=== PATIENT | female | born 1985 | race Caucasian/White ===

== ENCOUNTER 2018-05-27 19:27 | Emergency (ER) | END 2018-05-27 23:31 | disposition home or self-care (01) ==

== ENCOUNTER 2018-06-04 16:41 | Observation (INO) | END 2018-06-04 18:14 | disposition home or self-care (01) ==

== ENCOUNTER 2019-01-05 08:04 | Emergency (ER) | payer MEDICAID ==
[~2019-01-05] VITALS: Wt 68.2 kg
[~2019-01-05 08:04] MED LIST: PREN-39 PO
[2019-01-05] MEDS ORDERED: ACET500C5 PO (12:08)
[2019-01-05] MEDS ORDERED: CEPH-443 PO (12:08)
[2019-01-05 12:20] VITALS: BP 128/70; PULSE 73; RESP 18
--- NOTE | 2019-01-05 14:12 | ERD ---
ER Documentation Chief Complaint Chief Complaint vag bleed, 7 wks preg HPI 33-year-old female patient with no significant past medical history is a presents to the ED for vaginal bleeding, is currently 7 weeks . Patient is up-to-date with her vaccinations. Denies any chest pain, shortness of breath, nausea, vomiting, diarrhea, neck stiffness. ROS All systems reviewed and are negative except as per history of present illness. Medications Home Meds Active Scripts Acetaminophen* (Tylophen*) 500 Mg Capsule, 1 CAP PO Q6H PRN for PAIN AND OR ELEVATED TEMP, #20 CAP Prov:ALON WEIR PA-C 01/05/19 Cephalexin* (Keflex*) 500 Mg Capsule, 500 MG PO QID for 7 Days, CAP Prov:ALON WEIR PA-C 01/05/19 Reported Medications Vits W-Ca,Fe,Fa(<1MG) ( Vitamins) 1 Tab Tablet, 1 TAB PO DAILY 06/28/13 Allergies Allergies: Coded Allergies: No Known Drug Allergies (Verified Allergy, Unknown, 06/04/18) PMhx/Soc History of Surgery: Yes (C SEC X'S 1 ) Anesthesia Reaction: No Hx Alcohol Use: No Hx Substance Use: No Hx Tobacco Use: No Smoking Status: Never smoker Physical Exam Vitals Vital Signs Date Temp Pulse Resp B/P (MAP) Pulse Ox O2 O2 Flow FiO2 Time Delivery Rate 01/05/19 98.7 73 18 128/70 100 Room Air 12:20 (89) 01/05/19 98.7 86 20 123/67 100 08:08 (85) Physical Exam Const: [id number]-[id number], well-nourished. In no acute distress. Head: Atraumatic, normocephalic Eyes: Normal Conjunctiva without injection. No purulent discharge. ENT: Normal external ear, nose. Moist oropharynx without tonsillar exudates. Non-erythematous pharynx. Uvula midline. No drooling. No trismus. Neck: No cervical midline tenderness. Full range of motion. No meningismus. No cervical lymphadenopathy. No JVD. Resp: Clear to auscultation bilaterally. No wheezing, rhonchi, rales, or crackles. No accessory muscle use. No retractions. Cardio: Regular rate and rhythm. No murmurs, rubs or gallops. Abd: Soft, nontender, non distended. Normal bowel sounds. No palpable masses. No rebound tenderness. No guarding. Negative McBurney's point. Negative psoas sign. Negative obturator sign. Skin: No petechiae or rashes Back: No midline tenderness. No CVA tenderness. Ext: No cyanosis, or edema. Neur: Awake and alert. Normal gait. Normal coordination. Psych: Normal Mood and Affect Result Diagram: 01/05/19 0824 Results 24 hrs Laboratory Tests Test 01/05/19 08:24 White Blood Count 5.8 10^3/ul Red Blood Count 4.19 10^6/ul Hemoglobin 12.1 g/dl Hematocrit 36.6 % Mean Corpuscular Volume 87.4 fl Mean Corpuscular Hemoglobin 28.9 pg Mean Corpuscular Hemoglobin Concent 33.1 g/dl Red Cell Distribution Width 17.0 % Platelet Count 231 10^3/UL Mean Platelet Volume 9.2 fl Immature Granulocytes % 0.500 % Neutrophils % 64.6 % Lymphocytes % 25.4 % Monocytes % 6.1 % Eosinophils % 3.1 % Basophils % 0.3 % Nucleated Red Blood Cells % 0.0 /100WBC Immature Granulocytes # 0.030 10^3/ul Neutrophils # 3.7 10^3/ul Lymphocytes # 1.5 10^3/ul Monocytes # 0.4 10^3/ul Eosinophils # 0.2 10^3/ul Basophils # 0.0 10^3/ul Nucleated Red Blood Cells # 0.0 10^3/ul Urine Color YELLOW Urine Clarity CLEAR Urine pH 8.0 Urine Specific [place] 1.014 Urine Ketones NEGATIVE mg/dL Urine Nitrite NEGATIVE mg/dL Urine Bilirubin NEGATIVE mg/dL Urine Urobilinogen NEGATIVE mg/dL Urine Leukocyte Esterase NEGATIVE Desiree/ul Urine Microscopic RBC 127 /HPF Urine Microscopic WBC 1 /HPF Urine Squamous Epithelial Cells FEW /HPF Urine Bacteria FEW /HPF Urine Hemoglobin 3+ mg/dL Urine Glucose NEGATIVE mg/dL Urine Total Protein NEGATIVE mg/dl Beta HCG, Quantitative 772851.0 mIU/ml Procedures/MDM 3-year-old female patient with no significant past medical history presents to ED for vaginal bleeding in her . An ultrasound, beta-hCG, CBC, type and RH, UA was ordered to evaluate patient. CBC: No evidence of severe infection or anemia Urine: No elevation in nitrites, leukocyte esterase, 2+ hematuria. Few bacteria noted. Rh: O negative. Patient was given Rhogam. beta Hc IMPRESSION: Single live intrauterine with an estimated gestational age of 7 weeks and 5 days, based on ultrasound measurements. Small area of subchorionic hemorrhage. Close follow-up is recommended. Mild subchorionic hemorrhage noted, could be reason for vaginal bleeding. Patient has a 7 weeks, 5 days single IUP noted. Patient will be treated for urinary tract infection. Patient's bleeding symptoms have stabilized while in the department. Low suspicion for symptomatic anemia, ectopic , sepsis, PID, appendicitis, ovarian torsion, tubo-ovarian abscess, surgical abdomen, or other emergent conditions. Patient was educated that there is a risk for threatened . Patient to follow up with [facility] in 2 days for further evaluation and treatment. Patient is to return sooner to the ED for any worsening symptoms. Patient's questions were answered. Patient understood and agreed with discharge plan. Disclaimer: Inadvertent spelling and grammatical errors are likely due to EHR/dictation software use and do not reflect on the overall quality of patient care. Also, please note that the electronic time recorded on this note does not necessarily reflect the actual time of the patient encounter. Departure Diagnosis: Primary Impression: Vaginal bleeding in patient at less than 20 weeks ges... Condition: Stable Patient Instructions: If You Are Rh Negative, Urinary Tract Infections in Women, Bleeding During Early Referrals: [facility] [address] [facility] [address] [place] [address] [id number] OFFICE FAX HERO CORONADO [address] [place], [place] [id number] DR. SHARP KENOSHA [address] [place], [place] [phone] SATISH GREENE [address] [facility], [address] [place] [address] MIRELA BOYD [address] [facility], [place], [place] [phone] [facility] [address] [place], [place] [id number] ALFREDA MOY [facility] [id number] - ADONAY WILSON [address], [facility] [address] [address] [place], [place] [address] [facility]. [address], [facility] [address] [address], FARID [address] [place] [address] [facility] Hours: 8:00 am - 5:00 pm [facility] () Usted se claros hecho un examen mdico de control que le indica que no est en doug condicin que requiera tratamiento urgente en el Departamento de Emergencia. Un estudio ms profundo y el tratamiento de calderon condicin pueden esperar sin ningn riesgo hasta que usted sea atendida/o en el consultorio de calderon mdico o doug clnica. Es responsabilidad suya arreglar doug denia para el seguimiento del keyon. MANEJO DE CONDICIONES NO URGENTES EN EL FUTURO 1) Si usted tiene un mdico de atencin primaria: Usted debera llamar a calderon mdico de atencin primaria antes de venir al departamento de emergencia. Despus de las horas de consultorio, calderon doctor o calderon asociado/a est disponible por telfono. El mdico o enfermero de harvinder en el servicio telefnico puede asesorarle por luly medio para atender el problema, o keyon contrario se puede programar doug denia. 2) Si usted no tiene un mdico de atencin primaria: Llame al mdico o clnica de referencia que aparece abajo lizabeth las horas de consultorio para hacer doug denia para que le vean. CLINICAS: [facility] [phone] [facility] [phone] [facility] [phone] [facility] [phone] [place] [phone] [address] [place] [id number] [phone] [facility]. [facility] () Usted se claros hecho un examen mdico de control que le indica que no est en doug condicin que requiera tratamiento urgente en el Departamento de Emergencia. Un estudio ms profundo y el tratamiento de calderon condicin pueden esperar sin ningn riesgo hasta que usted sea atendida/o en el consultorio de calderon mdico o doug c lnica. Es responsabilidad suya arreglar doug denia para el seguimiento del keyon. MANEJO DE CONDICIONES NO URGENTES EN EL FUTURO 1) Si usted tiene un mdico de atencin primaria: Usted debera llamar a calderon mdico de atencin primaria antes de venir al departamento de emergencia. Despus de las horas de consultorio, calderon doctor o calderon asociado/a est disponible por telfono. El mdico o enfermero de harvinder en el servicio telefnico puede asesorarle por luly medio para atender el problema, o keyon contrario se puede programar doug denia. 2) Si usted no tiene un mdico de atencin primaria: Llame al mdico o condado institucions de referencia que aparece abajo lizabeth las horas de consultorio para hacer doug denia para que le vean. SI USTED NO PUEDE PAGAR PARA STEPHANIE UN MEDICO puede ir a: [facility] [address] [place] [address] [facility] [address] [place] [address] [facility] [address] [place] [address] [facility] [address] [place], [place] [id number] Additional Instructions: Llame al doctor MAANA y kael doug DENIA PARA DENTRO DE 2-3 ZAVALA.Dgale a la secretaria que nosotros le instruimos hacer esta denia.Avise o llame si calderon condicin se empeora antes de la denia. Regresa aqui si peor o no mejor. ALON WEIR PA-C Jan 05, 2019 14:12
== END 2019-01-05 12:23 | disposition home or self-care (01) ==
LOC: FTE 08:04
DX: O20.9 Hemorrhage in early pregnancy, unspecified (principal); Z3A.01 Less than 8 weeks gestation of pregnancy
CPT/HCPCS: 36415; 76801; 81001; 84702; 85025; 86900; 86901; J2790; Z7502

== ENCOUNTER 2019-02-01 18:21 | Emergency (ER) | payer MEDICAID ==
[~2019-02-01] VITALS: Ht 162.6 cm; Wt 71.0 kg
[~2019-02-01 18:21] MED LIST changes: +ACET500C5 PO; +CEPH-443 PO
[2019-02-01 18:43] VITALS: BP 133/78; PULSE 101; RESP 18; Ht 162.6 cm; Wt 71.0 kg
--- NOTE | 2019-02-01 21:21 | ERD ---
ER Documentation Chief Complaint Chief Complaint 12 WKS PREG WITH VAGINAL BLEEDING & PELVIC PAIN HPI 33-year-old female, with a EGA 12 weeks by LMP 11/16/18, presents to the emergency department, complaining of 3 days with persistent vaginal bleeding, associated with mild, intermittent, cramping pelvic pain. The patient denies fevers, no chills. [facility] All systems reviewed and are negative except as per history of present illness. Medications Home Meds Active Scripts Acetaminophen* (Tylophen*) 500 Mg Capsule, 1 CAP PO Q6H PRN for PAIN AND OR ELEVATED TEMP, #20 CAP Prov:ALON WEIR PA-C 01/05/19 Cephalexin* (Keflex*) 500 Mg Capsule, 500 MG PO QID for 7 Days, CAP Prov:ALON WEIR PA-C 01/05/19 Reported Medications Vits W-Ca,Fe,Fa(<1MG) ( Vitamins) 1 Tab Tablet, 1 TAB PO DAILY 06/28/13 Allergies Allergies: Coded Allergies: No Known Drug Allergies (Verified Allergy, Unknown, 06/04/18) PMhx/Soc History of Surgery: Yes (C SEC X'S 1 ) Anesthesia Reaction: No Hx Alcohol Use: No Hx Substance Use: No Hx Tobacco Use: No Smoking Status: Never smoker Physical Exam Vitals Vital Signs Date Temp Pulse Resp B/P (MAP) Pulse Ox O2 O2 Flow FiO2 Time Delivery Rate 02/01/19 98.9 101 18 133/78 99 18:43 (96) Physical Exam Const: No acute distress Head: Atraumatic Eyes: Normal Conjunctiva ENT: Normal External Ears, Nose and Mouth. Neck: Full range of motion. No meningismus. Resp: Clear to auscultation bilaterally Cardio: Regular rate and rhythm, no murmurs Abd: Soft, non tender, non distended. Normal bowel sounds Skin: No petechiae or rashes Back: No midline or flank tenderness Ext: No cyanosis, or edema Neur: Awake and alert Psych: Normal Mood and Affect Procedures/MDM Vital signs stable, Physical exam unremarkable. Differential diagnosis include but not limited to: UTI, threatening , incomplete versus complete , ectopic , physiologic implantation bleeding, molar . Physical examination and clinical presentation most likely consistent with threatening . During the ED course the patient remained hemodynamically stable and asymptomatic. Results and clinical impression discussed with patient who agrees with management. The patient is stable to be treated outpatient and will be discharged home with close monitoring and follow-up in 2 days with her primary physician. Bed rest and pelvic rest recommended until further medical evaluation. The patient was instructed regarding the outcomes and the potential complications like severe bleeding and . If the patient presents severe bleeding or pain, she was instructed to return to the hospital immediately. Disclaimer: Inadvertent spelling and grammatical errors are likely due to EHR/dictation software use and do not reflect on the overall quality of patient care. Also, please note that the electronic time recorded on this note does not necessarily reflect the actual time of the patient encounter. Departure Diagnosis: Primary Impression: Vaginal bleeding in patient at less than 20 weeks gestation Condition: Stable Additional Instructions: Muchas angus por [facility] para calderon servicio. Esperamos que en calderon visita a la abbi de emergencia calderon problema medico haya sido solucionado y que se sienta mucho mejor. Para estar seguros que calderon mejoria sigue en proceso, le pedimos el favor de hacer doug angy de seguimiento medico con calderon doctor primario en los proximos 2-4 gutierrez. Lleve con usted estos documentos y las medicinas recetadas. Si sancho sintomas empeoran, NO SE ESPERE, por favor regrese a abbi de emergencia INMEDIATAMENTE. En keyon que usted no tenga un mdico de atencin primaria: Llame al mdico o clnica comunitaria de referencia que aparece abajo lizabeth las horas de consultorio para hacer doug angy para que le vean. CLINICAS: [facility] 716 [phone] [address] [facility] [phone] [address] [facility] [phone] [address] [facility] 802 [phone] [address] [facility] 550 [phone] 68[address] [facility] [phone] LINDA WATSON MD Feb 01, 2019 21:21
== END 2019-02-01 23:09 | disposition home or self-care (01) ==
LOC: FTE 18:21
DX: O20.9 Hemorrhage in early pregnancy, unspecified (principal); Z3A.11 11 weeks gestation of pregnancy
CPT/HCPCS: 76801; 81003; Z7502